=== PATIENT | male | born 1955 | race Caucasian/White ===

== ENCOUNTER 2018-07-09 15:44 | Emergency (ER) | payer OTHER ==
[2018-07-09] MEDS ORDERED: Sodium Chloride 0.9% 10 ML Syringe FLUSH PRN (15:59)
[2018-07-09] MEDS ORDERED: Aspirin 81 MG Tab.Chew PO ONE (16:03)
[2018-07-09] MEDS ORDERED: Ketorolac 30 MG/ML SDV IVPUSH ONE (16:03)
--- NOTE | 2018-07-09 16:08 | EDM.PDOC ---
ED HPI GENERAL MEDICAL PROBLEM - General Chief Complaint: Chest Pain Stated Complaint: CHEST PAIN Time Seen by Provider: 07/09/18 16:04 Source of Information: Reports: Patient History Limitations: Reports: No Limitations - History of Present Illness INITIAL COMMENTS - FREE TEXT/NARRATIVE: Awoke with right sided sharp burning chest pain, associated with slight shortness of breath, denies cough or injury, not pleuritic. No prior h/o CAD. + FMHx CAD (Mother and Father with CAD in their 60's). Onset: Today Onset Date: 07/09/18 Onset Time: 06:00 Location: Reports: Chest (right) Quality: Reports: Burning, Sharp Severity: Moderate Associated Symptoms: Reports: Shortness of Breath (slight) Right Chest Pain Score (Numeric/FACES): 9 - Related Data Allergies Allergy/AdvReac Type Severity Reaction Status Date / Time bee venom protein (honey bee) Allergy Anaphylactic Verified 07/09/18 15:55 Shock flomax Allergy Chest Pain Uncoded 07/09/18 15:55 Home Meds: Home Meds Fluticasone Propionate [Flonase] 1 spray NASBOTH DAILY PRN 02/02/14 [History] atorvaSTATin [Lipitor] 40 mg PO BEDTIME 02/02/14 [History] hydroCHLOROthiazide [Hydrochlorothiazide] 25 mg PO BID 02/02/14 [History] Cyclobenzaprine [Flexeril] 10 mg PO TID PRN #20 tab 07/09/18 [Rx] Naproxen 500 mg PO BID PRN #20 tablet 07/09/18 [Rx] Past Medical History Cardiovascular History: Reports: High Cholesterol, Hypertension. Denies: CAD, [place] Social & Family History - Tobacco Use Smoking Status *Q: Never Smoker ED ROS GENERAL - Review of Systems Review Of Systems: ROS reveals no pertinent complaints other than HPI. ED EXAM, GENERAL - Physical Exam Exam: See Below Exam Limited By: No Limitations General Appearance: Alert, WD/WN, No Apparent Distress Ears: Normal External Exam Nose: Normal Inspection Throat/Mouth: No Airway Compromise Head: Atraumatic, Normocephalic Neck: Full Range of Motion Respiratory/Chest: No Respiratory Distress, Lungs Clear, Normal Breath Sounds, Other (moderate right sided chest wall tenderness) Cardiovascular: Regular Rate, Rhythm, No Edema, No Murmur GI/Abdominal: No Distention Back Exam: Full Range of Motion Extremities: Normal Range of Motion, Non-Tender, No Pedal Edema Neurological: Alert, Normal Cognition, No Motor/Sensory Deficits Psychiatric: Normal Affect, Normal Mood Skin Exam: Warm, Dry, Intact EKG INTERPRETATION EKG Date: 07/09/18 Time: 15:50 Rhythm: NSR Rate (Beats/Min): 72 [place]: Normal P-Wave: Present QRS: Normal ST-T: Other (Borderline T wave abnormality) QT: Normal Comparison: Other: (EKG @19:08 shows no changes) Course - Vital Signs Last Recorded V/S: Last Vital Signs Temp 36.4 C 07/09/18 15:56 Pulse 71 07/09/18 15:56 Resp 20 07/09/18 15:56 BP 121/85 07/09/18 15:56 Pulse Ox 100 07/09/18 15:56 - Orders/Labs/Meds Orders: Active Orders 24 hr Category Date Time Status EKG Documentation Completion [RC] ASDIRECTED Care 07/09/18 15:59 Active EKG Documentation Completion [RC] ASDIRECTED Care 07/09/18 19:00 Active CXR [Chest 1V Frontal] [CR] Stat Exams 07/09/18 15:58 Taken Sodium Chloride 0.9% [Saline Flush] Med 07/09/18 15:59 Active 10 ml FLUSH ASDIRECTED PRN Saline Lock Insert [OM.PC] Routine Oth 07/09/18 15:59 Ordered EKG 12 Lead [EK] Stat Ther 07/09/18 15:58 Ordered EKG 12 Lead [EK] Urgent Ther 07/09/18 19:00 Ordered Medication Orders Sodium Chloride (Saline Flush) 10 ml FLUSH ASDIRECTED PRN PRN Reason: Keep Vein Open Labs: Laboratory Tests 07/09/18 07/09/18 07/09/18 Range/Units 16:20 16:20 16:20 WBC 6.2 (4.5-12.0) X10-3/uL RBC 5.50 (4.30-5.75) x10(6)uL Hgb 17.4 (13.5-17.8) g/dL Hct 50.3 (30.0-51.3) % MCV 91.4 (80-96) fL MCH 31.7 (27.7-33.6) pg MCHC 34.7 (32.2-35.4) g/dL RDW 12.4 (11.5-15.5) % Plt Count 189 (125-369) X10(3)uL MPV 9.0 (7.4-10.4) fL Neut % (Auto) 47.4 (46-82) % Lymph % (Auto) 35.1 (13-37) % [place] % (Auto) 13.8 H (4-12) % Eos % (Auto) 2 (1.0-5.0) % Baso % (Auto) 1 (0-2) % Neut # (Auto) 2.9 (1.6-8.3) # Lymph # (Auto) 2.2 (0.6-5.0) # Atlantic # (Auto) 0.9 (0.0-1.3) # Eos # (Auto) 0.1 (0.0-0.8) # Baso # (Auto) 0.1 (0.0-0.2) # PT 10.5 (8.7-11.1) INR 1.08 (0.89-1.13) APTT 24.5 (24.4-33.2) SECONDS D-Dimer, Quantitative 0.26 (0.0-0.59) mg/LFEU Sodium 139 (135-145) mmol/L Potassium 3.6 (3.5-5.3) mmol/L Chloride 98 L (100-110) mmol/L Carbon Dioxide 31 (21-32) mmol/L BUN 20 H (7-18) mg/dL Creatinine 1.1 (0.70-1.30) mg/dL Est Cr Clr Drug Dosing TNP Estimated GFR (MDRD) > 60 (>60) BUN/Creatinine Ratio 18.2 (9-20) Glucose 96 (80-116) mg/dL Calcium 9.0 (8.6-10.2) mg/dL Total Bilirubin 0.9 (0.1-1.3) mg/dL AST 23 (5-25) IU/L ALT 42 H (12-36) U/L Alkaline Phosphatase 78 (56-112) IU/L Troponin I (<0.017-0.056) ng/mL Total Protein 7.1 (6.0-8.0) g/dL Albumin 3.9 (3.2-4.6) g/dL Globulin 3.2 g/dL Albumin/Globulin Ratio 1.2 07/09/18 07/09/18 Range/Units 16:20 19:20 WBC (4.5-12.0) X10-3/uL RBC (4.30-5.75) x10(6)uL Hgb (13.5-17.8) g/dL Hct (30.0-51.3) % MCV (80-96) fL MCH (27.7-33.6) pg MCHC (32.2-35.4) g/dL RDW (11.5-15.5) % Plt Count (125-369) X10(3)uL MPV (7.4-10.4) fL Neut % (Auto) (46-82) % Lymph % (Auto) (13-37) % Atlantic % (Auto) (4-12) % Eos % (Auto) (1.0-5.0) % Baso % (Auto) (0-2) % Neut # (Auto) (1.6-8.3) # Lymph # (Auto) (0.6-5.0) # Atlantic # (Auto) (0.0-1.3) # Eos # (Auto) (0.0-0.8) # Baso # (Auto) (0.0-0.2) # PT (8.7-11.1) INR (0.89-1.13) APTT (24.4-33.2) SECONDS D-Dimer, Quantitative (0.0-0.59) mg/LFEU Sodium (135-145) mmol/L Potassium (3.5-5.3) mmol/L Chloride (100-110) mmol/L Carbon Dioxide (21-32) mmol/L BUN (7-18) mg/dL Creatinine (0.70-1.30) mg/dL Est Cr Clr Drug Dosing Estimated GFR (MDRD) (>60) BUN/Creatinine Ratio (9-20) Glucose (80-116) mg/dL Calcium (8.6-10.2) mg/dL Total Bilirubin (0.1-1.3) mg/dL AST (5-25) IU/L ALT (12-36) U/L Alkaline Phosphatase (56-112) IU/L Troponin I < 0.017 L < 0.017 L (<0.017-0.056) ng/mL Total Protein (6.0-8.0) g/dL Albumin (3.2-4.6) g/dL Globulin g/dL Albumin/Globulin Ratio Meds: Medications Generic Name Dose Route Start Last Admin Trade Name Freq PRN Reason Stop Dose Admin Sodium Chloride 10 ml 07/09/18 15:59 Saline Flush FLUSH ASDIRECTED PRN Keep Vein Open Discontinued Medications Generic Name Dose Route Start Last Admin Trade Name Freq PRN Reason Stop Dose Admin Aspirin 324 mg 07/09/18 16:03 07/09/18 16:30 Aspirin PO 07/09/18 16:04 324 mg ONETIME ONE Administration Cyclobenzaprine HCl 10 mg 07/09/18 17:06 07/09/18 17:24 Flexeril PO 07/09/18 17:07 10 mg ONETIME ONE Administration Ketorolac Tromethamine 30 mg 07/09/18 16:03 07/09/18 16:30 Toradol IVPUSH 07/09/18 16:04 30 mg ONETIME ONE Administration - Radiology Interpretation Free Text/Narrative:: CXR: No acute process. (ED provider interpretation) - Re-Assessments/Exams Free Text/Narrative Re-Assessment/Exam: 07/09/18 17:07 Symptoms improved after Toradol 30mg IV and ASA 324mg PO 07/09/18 19:49 Symptoms recurred, right chest wall area very tender to palpation. Departure - Departure Time of Disposition: 19:51 Disposition: Home, Self-Care 01 Condition: Good Clinical Impression: Chest wall pain Prescriptions: Cyclobenzaprine [Flexeril] 10 mg PO TID PRN #20 tab PRN Reason: Muscle Spasm Naproxen 500 mg PO BID PRN #20 tablet PRN Reason: Pain Instructions: Chest Wall Pain Referrals: Mannie Urban MD [Primary Care Provider] - 2 Days Forms: ED Department Discharge Additional Instructions: Fill prescriptions for Naproxen and Flexeril and take as directed. Rest. Alternate Ice and Heat. Follow up with your primary physician in 2 days. Return to the ER if symptoms worsen. - My Orders Last 24 Hours: My Active Orders 07/09/18 15:58 CXR [Chest 1V Frontal] [CR] Stat EKG 12 Lead [EK] Stat 07/09/18 15:59 EKG Documentation Completion [RC] ASDIRECTED Sodium Chloride 0.9% [Saline Flush] 10 ml FLUSH ASDIRECTED PRN Saline Lock Insert [OM.PC] Routine 07/09/18 19:00 EKG Documentation Completion [RC] ASDIRECTED EKG 12 Lead [EK] Urgent - Assessment/Plan Last 24 Hours: My Active Orders 07/09/18 15:58 CXR [Chest 1V Frontal] [CR] Stat EKG 12 Lead [EK] Stat 07/09/18 15:59 EKG Documentation Completion [RC] ASDIRECTED Sodium Chloride 0.9% [Saline Flush] 10 ml FLUSH ASDIRECTED PRN Saline Lock Insert [OM.PC] Routine 07/09/18 19:00 EKG Documentation Completion [RC] ASDIRECTED EKG 12 Lead [EK] Urgent
[2018-07-09] MEDS ORDERED: Cyclobenzaprine 10 MG Tab PO ONE (17:06)
--- NOTE | 2018-07-11 08:25 | CR ---
INDICATION: Chest pain. CHEST: A portable AP upright view of the chest was obtained 07/09/18 - no comparisons. The heart appeared to be near the upper limits of normal in size but may be within normal limits. The aorta is minimally calcified in the arch area. Overlying EKG leads are noted. An active infiltrate or effusion was not identified. Although markings are slightly heavy at the lung bases and likely represent pulmonary fibrosis, it is difficult to entirely exclude minimal patchy bronchopneumonia. Also noted are heavy markings in the apical lung, especially on the right, likely fibrotic in nature. Pneumonia in the right apical area is difficult to entirely exclude also. IMPRESSION: 1. No definite acute process but difficult to entirely exclude minimal areas of patchy pneumonia in the lung bases and the right apical area. 2. Probable ASHD. 3. Minimal dextroconvex scoliosis upper middle thoracic spine. 4. Probable pulmonary fibrosis. MTDD
== END 2018-07-09 20:04 | disposition home or self-care (01) ==
LOC: FB.ED 15:44
DX: R07.89 Other chest pain (principal); E78.00 Pure hypercholesterolemia, unspecified; I10 Essential (primary) hypertension; Z91.030 Bee allergy status; Z88.8 Allergy status to other drugs, medicaments and biological substances; Z79.899 Other long term (current) drug therapy
CPT/HCPCS: 36415; 71045; 80053; 84484; 85025; 85379; 85610; 85730; 93005; 96374; 99285-25; A9270-GY; J1885

== ENCOUNTER 2019-02-26 13:07 | Emergency (ER) | payer OTHER ==
--- NOTE | 2019-02-26 14:02 | EDM.PDOC ---
ED HPI GENERAL MEDICAL PROBLEM - General Chief Complaint: Chest Pain Stated Complaint: CHEST PAIN Time Seen by Provider: 02/26/19 13:37 Source of Information: Reports: Patient, Family, Old Records History Limitations: Reports: No Limitations - History of Present Illness INITIAL COMMENTS - FREE TEXT/NARRATIVE: Fredy comes into [facility] ED with relapses of atypical precordial chest pains, significance unknown. He has sporadic relapses that seem to migrate from L to R accross the chest anteriorly, sharp and disabling. At times he feels SOB, but denies palpitations, sweats, GI upset, lt headiness, or LOC. More recently sxs occurred following a half day of deer hunting this weekend while walking back to the vehicles. Sxs lasted several hours, but did subside without sequelae. There is no trauma hx. He has known deg Lumbar disc disease. He has taken no meds. Of interest is a strong FMS of CAD. He was seen by packing machine feeder about 17 years ago, with no follow up. - Related Data Allergies Allergy/AdvReac Type Severity Reaction Status Date / Time bee venom protein (honey bee) Allergy Anaphylactic Verified 07/09/18 15:55 Shock flomax Allergy Chest Pain Uncoded 07/09/18 15:55 Home Meds: Home Meds Fluticasone Propionate [Flonase] 1 spray NASBOTH DAILY PRN 02/02/14 [History] atorvaSTATin [Lipitor] 40 mg PO BEDTIME 02/02/14 [History] hydroCHLOROthiazide [Hydrochlorothiazide] 25 mg PO BID 02/02/14 [History] Donepezil [Aricept] 5 mg PO BEDTIME 02/26/19 [History] Hydrocodone/Acetaminophen [Hydrocodon-Acetaminophen 5-325] 1 tab PO Q6HR PRN 04/04 [History] Levofloxacin [Levaquin] 500 mg PO DAILY #14 tablet 02/26/19 [Rx] atorvaSTATin [Lipitor] 40 mg PO DAILY 02/26/19 [History] Past Medical History HEENT History: Reports: Allergic Rhinitis Cardiovascular History: Reports: High Cholesterol, Hypertension. Denies: CAD, [place] Other Cardiovascular History: patient states he has 50% blockage in one of his coronary arteries. Respiratory History: Reports: None Gastrointestinal History: Reports: None Genitourinary History: Reports: Renal Calculus Musculoskeletal History: Reports: Back Pain, Chronic Neurological History: Reports: None Psychiatric History: Reports: None Endocrine/Metabolic History: Reports: None Hematologic History: Reports: None Immunologic History: Reports: None Oncologic (Cancer) History: Reports: None Dermatologic History: Reports: None - Past Surgical History Head Surgeries/Procedures: Reports: None HEENT Surgical History: Reports: None Respiratory Surgical History: Reports: None GI Surgical History: Reports: None Male Surgical History: Reports: Kidney Stone Extraction Endocrine Surgical History: Reports: None Neurological Surgical History: Reports: None Musculoskeletal Surgical History: Reports: None Oncologic Surgical History: Reports: None Dermatological Surgical History: Reports: None ED ROS GENERAL - Review of Systems Review Of Systems: See Below Constitutional: Reports: No Symptoms HEENT: Reports: No Symptoms Respiratory: Reports: Shortness of Breath (intermittent with chest pains) Cardiovascular: Reports: Chest Pain Endocrine: Reports: No Symptoms GI/Abdominal: Reports: No Symptoms : Reports: No Symptoms Musculoskeletal: Reports: Back Pain (chronic back pain) Skin: Reports: No Symptoms Neurological: Reports: No Symptoms Psychiatric: Reports: No Symptoms Hematologic/Lymphatic: Reports: No Symptoms Immunologic: Reports: No Symptoms ED EXAM, GENERAL - Physical Exam Exam: See Below Exam Limited By: No Limitations General Appearance: Alert, WD/WN, No Apparent Distress, Anxious Eye Exam: Bilateral Eye: EOMI, Normal Inspection, PERRL Ears: Normal External Exam Nose: Normal Inspection Throat/Mouth: Normal Inspection, Normal Lips, Normal Teeth, Normal Gums, Normal Oropharynx, Normal Voice, No Airway Compromise Head: Normocephalic Neck: Normal Inspection, Supple, Non-Tender, Full Range of Motion Respiratory/Chest: No Respiratory Distress, Normal Breath Sounds, No Accessory Muscle Use, Other (limited chest tenderness at xiphoid, compression test neg) Cardiovascular: Normal Peripheral Pulses, Regular Rate, Rhythm, No Murmur GI/Abdominal: Normal Bowel Sounds, Soft, Non-Tender, No Organomegaly, No Distention, No Mass (Male) Exam: Deferred Rectal (Males) Exam: Deferred Back Exam: Vertebral Tenderness (L2-5 R>L) Extremities: Normal Inspection, Normal Range of Motion Neurological: Alert, Oriented, CN II-XII Intact, Normal Cognition, No Motor/ Sensory Deficits Psychiatric: Normal Affect, Anxious Skin Exam: Warm, Dry, Intact Lymphatic: No Adenopathy Course - Vital Signs Text/Narrative:: Following assessment, a 12 lead EKG noted NSR, no acute changes. A subsequent frontal headache was reported, managed with Toradaol 30 mg IM. The screening labs and ekg were baseline, with inflammatory markers negative. I reviewed the Chest CT angio which noted no PE, but did note pneumonic infiltrates in the R upper lobe, with some fluid in the R middle lobe fissue, signifcance unknown. A pneumonia is suspected, but an underlying disorder could not be ruled out at this time. Case was discussed with patient and spouse, and empiric treatment with Levaquin 500 mg qd will begin, with follow up with PCP on March 13. A repeat CT Chest would be considered in 3-4 weeks. Last Recorded V/S: Last Vital Signs Temp 36.6 C 02/26/19 13:10 Pulse 75 02/26/19 13:10 Resp 14 02/26/19 13:10 BP 124/78 02/26/19 13:10 Pulse Ox 100 02/26/19 13:10 - Orders/Labs/Meds Orders: Active Orders 24 hr Category Date Time Status EKG Documentation Completion [RC] ASDIRECTED Care 02/26/19 13:39 Active Ang Chest [CT] Stat Exams 02/26/19 13:37 Taken EKG 12 Lead [EK] Routine Ther 02/26/19 13:37 Ordered Labs: Laboratory Tests 02/26/19 02/26/19 02/26/19 Range/Units 13:35 13:35 13:35 WBC 6.8 (4.5-12.0) X10-3/uL RBC 5.05 (4.30-5.75) x10(6)uL Hgb 16.2 (13.5-17.8) g/dL Hct 46.8 (30.0-51.3) % MCV 92.8 (80-96) fL MCH 32.0 (27.7-33.6) pg MCHC 34.5 (32.2-35.4) g/dL RDW 12.4 (11.5-15.5) % Plt Count 172 (125-369) X10(3)uL MPV 8.6 (7.4-10.4) fL Neut % (Auto) 57.5 (46-82) % Lymph % (Auto) 27.0 (13-37) % [place] % (Auto) 12.0 (4-12) % Eos % (Auto) 3 (1.0-5.0) % Baso % (Auto) 1 (0-2) % Neut # (Auto) 4.0 (1.6-8.3) # Lymph # (Auto) 1.8 (0.6-5.0) # [place]ick # (Auto) 0.8 (0.0-1.3) # Eos # (Auto) 0.2 (0.0-0.8) # Baso # (Auto) 0.0 (0.0-0.2) # ESR (0-15) mm/hr D-Dimer, Quantitative 0.21 (0.0-0.59) mg/LFEU Sodium 138 (135-145) mmol/L Potassium 3.0 L (3.5-5.3) mmol/L Chloride 99 L (100-110) mmol/L Carbon Dioxide 30 (21-32) mmol/L BUN 19 H (7-18) mg/dL Creatinine 0.9 (0.70-1.30) mg/dL Est Cr Clr Drug Dosing TNP Estimated GFR (MDRD) > 60 (>60) BUN/Creatinine Ratio 21.1 H (9-20) Glucose 104 (80-116) mg/dL Lactic Acid (0.4-2.2) mmol/L Calcium 9.3 (8.6-10.2) mg/dL Total Bilirubin 1.6 H (0.1-1.3) mg/dL AST 25 (5-25) IU/L ALT 53 H D (12-36) U/L Alkaline Phosphatase 78 (56-112) IU/L Troponin I (<0.017-0.056) ng/mL C-Reactive Protein (0.5-0.9) mg/dL Total Protein 7.0 (6.0-8.0) g/dL Albumin 3.7 (3.2-4.6) g/dL Globulin 3.3 g/dL Albumin/Globulin Ratio 1.1 02/26/19 02/26/19 02/26/19 Range/Units 13:35 13:35 13:35 WBC (4.5-12.0) X10-3/uL RBC (4.30-5.75) x10(6)uL Hgb (13.5-17.8) g/dL Hct (30.0-51.3) % MCV (80-96) fL MCH (27.7-33.6) pg MCHC (32.2-35.4) g/dL RDW (11.5-15.5) % Plt Count (125-369) X10(3)uL MPV (7.4-10.4) fL Neut % (Auto) (46-82) % Lymph % (Auto) (13-37) % [place] % (Auto) (4-12) % Eos % (Auto) (1.0-5.0) % Baso % (Auto) (0-2) % Neut # (Auto) (1.6-8.3) # Lymph # (Auto) (0.6-5.0) # [place] # (Auto) (0.0-1.3) # Eos # (Auto) (0.0-0.8) # Baso # (Auto) (0.0-0.2) # ESR 4 (0-15) mm/hr D-Dimer, Quantitative (0.0-0.59) mg/LFEU Sodium (135-145) mmol/L Potassium (3.5-5.3) mmol/L Chloride (100-110) mmol/L Carbon Dioxide (21-32) mmol/L BUN (7-18) mg/dL Creatinine (0.70-1.30) mg/dL Est Cr Clr Drug Dosing Estimated GFR (MDRD) (>60) BUN/Creatinine Ratio (9-20) Glucose (80-116) mg/dL Lactic Acid 1.6 (0.4-2.2) mmol/L Calcium (8.6-10.2) mg/dL Total Bilirubin (0.1-1.3) mg/dL AST (5-25) IU/L ALT (12-36) U/L Alkaline Phosphatase (56-112) IU/L Troponin I < 0.017 L (<0.017-0.056) ng/mL C-Reactive Protein (0.5-0.9) mg/dL Total Protein (6.0-8.0) g/dL Albumin (3.2-4.6) g/dL Globulin g/dL Albumin/Globulin Ratio 02/26/19 Range/Units 13:35 WBC (4.5-12.0) X10-3/uL RBC (4.30-5.75) x10(6)uL Hgb (13.5-17.8) g/dL Hct (30.0-51.3) % MCV (80-96) fL MCH (27.7-33.6) pg MCHC (32.2-35.4) g/dL RDW (11.5-15.5) % Plt Count (125-369) X10(3)uL MPV (7.4-10.4) fL Neut % (Auto) (46-82) % Lymph % (Auto) (13-37) % M[place]ick % (Auto) (4-12) % Eos % (Auto) (1.0-5.0) % Baso % (Auto) (0-2) % Neut # (Auto) (1.6-8.3) # Lymph # (Auto) (0.6-5.0) # Mccormick # (Auto) (0.0-1.3) # Eos # (Auto) (0.0-0.8) # Baso # (Auto) (0.0-0.2) # ESR (0-15) mm/hr D-Dimer, Quantitative (0.0-0.59) mg/LFEU Sodium (135-145) mmol/L Potassium (3.5-5.3) mmol/L Chloride (100-110) mmol/L Carbon Dioxide (21-32) mmol/L BUN (7-18) mg/dL Creatinine (0.70-1.30) mg/dL Est Cr Clr Drug Dosing Estimated GFR (MDRD) (>60) BUN/Creatinine Ratio (9-20) Glucose (80-116) mg/dL Lactic Acid (0.4-2.2) mmol/L Calcium (8.6-10.2) mg/dL Total Bilirubin (0.1-1.3) mg/dL AST (5-25) IU/L ALT (12-36) U/L Alkaline Phosphatase (56-112) IU/L Troponin I (<0.017-0.056) ng/mL C-Reactive Protein < 0.2 L (0.5-0.9) mg/dL Total Protein (6.0-8.0) g/dL Albumin (3.2-4.6) g/dL Globulin g/dL Albumin/Globulin Ratio Meds: Medications Discontinued Medications Generic Name Dose Route Start Last Admin Trade Name Munira PRN Reason Stop Dose Admin Iopamidol 60 ml 02/26/19 14:16 02/26/19 14:25 Isovue-370 (76%) IV 02/26/19 14:17 58 ml . DIRECTED ONE Administration Ketorolac Tromethamine 30 mg 02/26/19 14:29 02/26/19 14:45 Toradol IM 02/26/19 14:30 30 mg ONETIME ONE Administration Departure - Departure Time of Disposition: 16:20 Disposition: Home, Self-Care 01 Condition: Fair Clinical Impression: Pneumonia Qualifiers: Pneumonia type: due to unspecified organism Laterality: right Lung location: upper lobe of lung Qualified Code(s): J18.9 - Pneumonia, unspecified organism Prescriptions: Levofloxacin [Levaquin] 500 mg PO DAILY #14 tablet Forms: ED Department Discharge - Problem List & Annotations (1) Pneumonia SNOMED Code(s): 805429699 Code(s): J18.9 - PNEUMONIA, UNSPECIFIED ORGANISM Status: Acute Current Visit: Yes Annotation/Comment:: Levaquin 500 mg qd x 14 days pending follow up with PCP on March 13. Qualifiers: Pneumonia type: due to unspecified organism Laterality: right Lung location: upper lobe of lung Qualified Code(s): J18.9 - Pneumonia, unspecified organism (2) Chest wall pain SNOMED Code(s): 888799883 Code(s): R07.89 - OTHER CHEST PAIN Status: Acute Current Visit: No Annotation/Comment:: Atypical chest pain, may be related to pnuemonic infiltrates in R lung. Further consultation to be considered by PCP later this month. - Problem List Review Problem List Initiated/Reviewed/Updated: Yes - My Orders Last 24 Hours: My Active Orders 02/26/19 13:37 Ang Chest [CT] Stat EKG 12 Lead [EK] Routine 02/26/19 13:39 EKG Documentation Completion [RC] ASDIRECTED - Assessment/Plan Last 24 Hours: My Active Orders 02/26/19 13:37 Ang Chest [CT] Stat EKG 12 Lead [EK] Routine 02/26/19 13:39 EKG Documentation Completion [RC] ASDIRECTED Plan: Follow up with PCP.
[2019-02-26] MEDS ORDERED: Iopamidol 755 Mg/ML 100 ML Bottle IV ONE (14:16)
[2019-02-26 14:20] VITALS: BP 124/78; PULSE 75
[2019-02-26] MEDS ORDERED: Ketorolac 30 MG/ML SDV IM ONE (14:29)
--- NOTE | 2019-02-27 09:45 | CT ---
INDICATION: Atypical chest pain, anterior upper chest. CT ANGIOGRAPHY OF THE CHEST WITH CONTRAST: Spiral 1.25 mm axial sections were obtained through the chest with sagittal and coronal reconstructions with 60 mL Isovue 370 at 3 mL/second, 02/26/19 - no comparisons. Total exam DLP = 354.90 mGy-cm. Mediastinal lymphadenopathy is mild and nonspecific. No mediastinal mass was seen. Extensive coronary artery calcification is noted. The heart appears slightly enlarged. Calcifications are noted in the arch of the aorta. Minimal scarring is noted at the left apex and moderately at the right apex. There appears to be patchy infiltration in the right apex extending inferiorly in the right upper lobe with infiltrate also noted in the apical superior segment of the right lower lobe minimally. These areas of infiltrate likely are on the basis of pneumonia. Somewhat prominent interstitial markings are noted extending into the lung bases, which may be on the basis of interstitial edema, although unusual infection cannot be entirely excluded with that appearance. Fibrotic change could also be present. No gross consolidating pneumonia or definite nodular masses were identified. There is either some minimal infiltrate or minimal scarring in the middle lobe on the right anteriorly seen on axial images #68 and #69. There appears to be some renal calcinosis with tiny calculi. Degenerative changes and some disk disease are suggested in the thoracic spine with bridging hyperostosis from the upper middle through the lower thoracic spine. Narrowing of disk spaces is seen. No finding to suggest an acute fracture was identified. IMPRESSION: 1. No evidence of PE. 2. Infiltrative changes in the right upper lobe, most severe at the apical portion where there is pleural thickening. Most likely this represents pneumonia, although malignancy is difficult to entirely exclude. The patchy infiltration does extend into the more inferior right upper lobe but mainly is within the apical segment of the right upper lobe. There also is some right lower lobe apical segment infiltrate, which may be related to the above infiltrate and may also represent pneumonia, as well as interstitial changes in both lung bases, which may be on the basis of fibrosis and/or unusual pneumonia , such as a superimposed viral pneumonia. A very minimal area of density - infiltrate may be present in the middle lobe on the right as a pneumonia or possibly minimal fibrotic change. 3. Somewhat flattened diaphragm leaves suggest the possibility of emphysematous change - correlate clinically. 4. ASHD/ASD. 5. Degenerative changes and some disk disease in the thoracic spine. 6. Renal calcinosis. 7. Mild degree of mediastinal lymphadenopathy, which is nonspecific. 8. Minimal renal cortical scarring. Report was given in person to Dr. Machuca at 1515 hours on 02/26/19. [facility]
== END 2019-02-26 16:33 | disposition home or self-care (01) ==
LOC: FB.ED 13:07
DX: J18.1 Lobar pneumonia, unspecified organism (principal); I10 Essential (primary) hypertension; E78.00 Pure hypercholesterolemia, unspecified; Z91.030 Bee allergy status; Z88.8 Allergy status to other drugs, medicaments and biological substances; Z79.899 Other long term (current) drug therapy
CPT/HCPCS: 36415; 71275; 80053; 83605; 84484; 85025; 85379; 85651; 86140; 93005; 96372; 99285-25; J1885; Q9967